=== PATIENT | male | born 1975 | race Caucasian/White ===

== ENCOUNTER 2020-07-04 02:19 | Emergency (ER) | payer OTHER, SELFPAY ==
[2020-07-04 02:20] VITALS: BP 96/69; PULSE 62; RESP 97; TEMP 36.6; O2SAT 94
--- NOTE | 2020-07-04 02:36 | EKG12_ITS ---
Test Reason : CP Blood Pressure : / mmHG Vent. Rate : 061 BPM Atrial Rate : 061 BPM P-R Int : 170 ms QRS Dur : 096 ms QT Int : 428 ms P-R-T Axes : 074 070 062 degrees QTc Int : 430 ms Normal sinus rhythm Normal ECG Confirmed by STEFAN MIGUEL, LOUIE ([id number]), animal treatment investigator TAD SCHWARTZ ([id number]) on 07/05/2020 1:05:05 PM Referred By: REBECA Confirmed By:LOUIE AVILES MD
--- NOTE | 2020-07-04 02:36 | ED.DCSUM_ITS ---
History of Present Illness Chief Complaint: Chest Pain Informant: Patient Onset: Today Current Severity: Mild Maximum Severity: Moderate Narrative: Patient presents via EMS secondary to chest pain. 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 He states that part is now resolved but he does have mild pressure substernally. He states he got quite short of breath with the initial pain but does not feel short of breath currently. He did not break out in a sweat. He states he been feeling well all day and has not had any recent change in activity tolerance. He denies any significant past medical history. He is a smoker. Past Medical History - Allergies and Home Meds Allergies/Adverse Reactions: Allergies No Known Allergies Allergy (Verified 07/04/20 02:28) Past Medical History: None Lives: With Family Smoking Status: Current every day smoker Review of Systems General: Denies: Chills, Fever Eyes: Denies: Visual changes - bilaterally ENT: Denies: Bilateral ear pain Cardiovascular: Reports: Chest pain Respiratory: Reports: Dyspnea. Denies: Cough Gastrointestinal: Denies: Abdominal pain, Nausea, Vomiting, Diarrhea Genitourinary: Denies: Dysuria Musculoskeletal: Denies: Swelling, Extremity Pain Skin: Denies: Rash Neurological: Denies: Headache Hematologic: Denies: Easy bruising, Easy bleeding Allergy: Denies: Uticaria Physical Exam Vital Signs/Narrative: Vital Signs Temp Pulse Resp BP Pulse Ox 07/04/20 02:20 97.9 F 62 97 H 96/69 94 Inital Vital Signs reviewed: Yes General: Well nourished, Well developed Head: Normocephalic ENT: Moist mucous membranes Neck: Supple Cardiovascular: Regular rate, Regular rhythm Respiratory: No distress, CTA bilaterally, Chest nontender Abdomen: Soft, Nontender Extremities: Nontender Skin: Normal color Neurological: Alert, Oriented x3 Psychological: Normal affect Diagnostic/Tx/Re-eval Impressions Chest X-Ray 07/04/20 02:54 IMPRESSION: Hyperinflation possible COPD. Suspect atelectasis right base. Electronically Signed: Elida Earl MD at 3:11 EDT , Service support , 07/04/20 02:54 Chest 1 View (Portable) [RAD] Stat Laboratory Results 07/04/20 07/04/20 07/04/20 02:24 02:24 02:24 WBC 6.2 Total Counted 100 Neutrophils % (Manual) 59 Lymphocytes % (Manual) 32 Monocytes % (Manual) 7 Eosinophils % (Manual) 2 Differential Comment MANUAL DIFF Platelet Estimate ADEQUATE RBC Morphology NORM C+C D-Dimer Quant (PE/DVT) <= 0.27 Sodium 137 Potassium 3.0 L Chloride 101 Carbon Dioxide 30.0 Anion Gap 6 BUN 13 Creatinine 1.24 Estim Creat Clear Calc 71.67 Est GFR (MDRD) Af Amer 80 Est GFR (MDRD) Non-Af 66 BUN/Creatinine Ratio 10.5 Glucose 113 H Calcium 8.8 Troponin I < 0.015 07/04/20 05:26 WBC Total Counted Neutrophils % (Manual) Lymphocytes % (Manual) Monocytes % (Manual) Eosinophils % (Manual) Differential Comment Platelet Estimate RBC Morphology D-Dimer Quant (PE/DVT) Sodium Potassium Chloride Carbon Dioxide Anion Gap BUN Creatinine Estim Creat Clear Calc Est GFR (MDRD) Af Amer Est GFR (MDRD) Non-Af BUN/Creatinine Ratio Glucose Calcium Troponin I < 0.015 - EKG Initial EKG Interpretation: Sinus Rhythm - Sinus at 61 with no acute ischemia. Follow-up EKG Interpretation: Sinus Rhythm - Sinus at 73 with no acute ischemia. - Medical Decision Making Patient was given aspirin with EMS. Initial blood work returned negative with a normal troponin and d-dimer. Because the patient's pain is started just shortly prior to arrival I did recommend a 3-hour repeat level. Patient did get some right-sided chest tightness while waiting for that test. Repeat EKG was unremarkable. He was given a dose of Toradol. 3-hour troponin is also negative. At this time patient's pain is very atypical for cardiac disease and he has had 2- troponins. He will be discharged home at this time. He will be referred to shannan Andrews in the no doc list. Patient states he does live in [place] and may follow-up with somebody in that area. He is given return instructions. ED Disposition - Plan for ED Patient: Disposition: Home or Assisted Living Diagnosis: Atypical chest pain Instructions: ED Chest Pain Atypical Unkn Cause Referrals: Chiquita He MD [STAFF PHYSICIAN] - As Needed
--- NOTE | 2020-07-04 02:54 | RAD_ITS ---
STUDY: X-RAY CHEST REASON FOR EXAM: Male, 45 years old. CHEST PRESSURE TECHNIQUE: Single AP portable view of the chest. COMPARISON: None. FINDINGS: There are superimposed monitor leads. There is hyperinflation of the lungs consistent with chronic obstructive lung disease (COPD). Mild compression of right basilar parenchyma. There is no demonstrated pleural abnormality. Normal size heart. Normal mediastinum and huan. Normal visualized pulmonary arteries. Normal visualized aortic arch and descending thoracic aorta. Normal visualized thoracic spine. Normal visualized ribs, clavicles, and shoulders. There is no demonstrated abnormality of the visualized soft tissue structures of the upper abdomen. RAD/Chest 1 View (Portable) IMPRESSION: Hyperinflation possible COPD. Suspect atelectasis right base. Electronically Signed: Elida Earl MD at 3:11 EDT , Service support ,
[2020-07-04] MEDS: 0.9% Normal Saline 1,000 ML 150 ML IV (02:58)
[2020-07-04 03:00] LABS: D-Dimer Quantitative (DVT/PE) <= 0.27 FEU/ug/m (0.27-0.49)
[2020-07-04 03:27] VITALS: BP 103/67; PULSE 65; RESP 14; O2SAT 99
[2020-07-04 03:28] LABS: Anion Gap 6 (5-15); BUN 13 mg/dL (7-18); BUN/Creat Ratio 10.5 RATIO (10-20); Calcium,Total 8.8 mg/dL (8.5-10.1); Chloride 101 mmol/L (98-107); Creatinine, Serum 1.24 mg/dL (0.70-1.30); EST Glomerular Filtration Rate 66 mL/min (>60); Est Glom Filt Rate - Afr Amer 80 mL/min (>60); Estimated Creatinine Clearance 71.67 ml/min; Glucose 113 mg/dL (74-106); Sodium Level 137 mmol/L (136-145)
[2020-07-04 04:00] VITALS: BP 126/82; PULSE 77; RESP 17; O2SAT 98
--- NOTE | 2020-07-04 04:37 | EKG12_ITS ---
Test Reason : REPEAT Blood Pressure : / mmHG Vent. Rate : 073 BPM Atrial Rate : 073 BPM P-R Int : 148 ms QRS Dur : 092 ms QT Int : 398 ms P-R-T Axes : 081 081 069 degrees QTc Int : 438 ms Normal sinus rhythm Normal ECG Confirmed by STEFAN MIGUEL, LOUIE ([id number]), medical transcription editor TAD SCHWARTZ ([id number]) on 07/05/2020 1:05:15 PM Referred By: REBECA Confirmed By:LOUIE AVILES MD
--- NOTE | 2020-07-04 04:39 | NURSING ---
Pt c/o rt sided chest pain. md notified. ekg ordered
[2020-07-04] MEDS: Ketorolac 30 MG/ML Syringe IV (04:59)
[2020-07-04 05:00] VITALS: BP 121/82; PULSE 80; RESP 18; O2SAT 98
[2020-07-04 06:22] VITALS: BP 100/70; PULSE 71; RESP 15; O2SAT 96
[2020-07-04 09:03] LABS: Absolute Lymphocyte Count 5.02 X10^3/uL (0.83-4.51); Absolute Neutrophil Count 9.4 X10^3/uL (2.0-7.7); Basophil# 0.13 X10^3/uL; Basophil% 0.8 % (0-1); Eosinophil# 0.27 X10^3/uL; Eosinophils% 1.7 % (0-5); Hematocrit 45.7 % (40-54); Hemoglobin 15.4 g/dL (13.0-16.5); Lymphocyte # 5.02 X10^3/ul (4.0); Lymphocyte % 30.9 % (19-41); Mean Corp Hgb Conc 33.7 g/dL (32-36); Mean Corpuscular Hgb 33.3 pg (27.0-32.0); Mean Corpuscular Volume 98.9 fL (80-94); Mean Platelet Vol. 10.4 fl (6.2-12.0); Monocyte# 1.34 X10^3/uL; Monocyte% 8.3 % (0-10); NRBC Flagged by Analyzer 0 % (0-5); Neutrophil # 9.39 X10^3/uL (2.7-7.7); Neutrophil % 57.8 % (47-70); POSITIVE DIFFERENTIAL YES; Platelet Count 472 K/mm3 (150-450); RBC Distribution Width CV 13.3 % (11.6-14.6); RBC Distribution Width SD 47.9 fl (35.1-43.9); Red Blood Count 4.62 M/mm3 (4.6-6.2); White Blood Count 16.2 K/mm3 (4.4-11.0)
[2020-07-04 09:17] LABS: Differential Indicated SCAN CRITERIA MET
== END 2020-07-04 06:24 | disposition home or self-care (01) ==
PROVIDERS: Emergency Provider Emergency Medicine
DX: R07.89 Other chest pain (principal); F17.200 Nicotine dependence, unspecified, uncomplicated
CPT/HCPCS: 71045; 80048; 84484; 85025; 85379; 93005; 96361; 96374; 99285; A4216